=== PATIENT | male | born 1955 | race African-American/Black ===

== ENCOUNTER 2016-12-15 10:31 | Inpatient (IN) | payer OTHER ==
[2016-12-15 12:16] VITALS: BMI 21.1
--- NOTE | 2016-12-15 13:33 | HP ---
COWS - Scale Resting Pulse: 0= [place] 80 or Below Sweatin=Flushed/Facial Moisture Restless Observation: 1= Difficult to Sit Still Pupil Size: 0= Normal to Room Light Bone or Joint Aches: 2= Severe Diffuse Aches Runny Nose/ Eye Tearin= Runny Nose/Eyes GI Upset > 30mins: 1= Stomach Cramp Tremor Observation: 2= Slight Tremor Visible Yawning Observation: 2= >3x During Session Anxiety or Irritability: 2=Irritable/Anxious Goose Flesh Skin: 3=Piloerection COWS Score: 17 Admission ROS S - HPI Chief Complaint: I am sick and need help. Allergies/Adverse Reactions: Allergies Allergy/AdvReac Type Severity Reaction Status Date / Time No Known Allergies Allergy Verified 12/15/16 12:39 History of Present Illness: pt is a61yr old male with a history of heroin dependence seeking detox for treatment. Exam Limitations: No Limitations - Ebola screening Have you traveled outside of the country in the last 21 days: No Have you had contact with anyone from an Ebola affected area: No Have you been sick,other than usual withdrawal symptoms: No Do you have a fever: No - Review of Systems Constitutional: Chills, Diaphoresis, Loss of Appetite, Night Sweats, Changes in sleep EENT: reports: Tearing, Nose Congestion Respiratory: reports: No Symptoms reported Cardiac: reports: No Symptoms Reported GI: reports: Diarrhea, Nausea, Poor Appetite, Poor Fluid Intake : reports: No Symptoms Reported Musculoskeletal: reports: Back Pain, Joint Pain Integumentary: reports: Flushing, Sweating Neuro: reports: Seizure, Tingling, Tremors Endocrine: reports: Excessive Sweating, Flushing, Intolerance to Cold, Intolerance to Heat Hematology: reports: No Symptoms Reported Psychiatric: reports: Judgement Intact, Mood/Affect Appropiate, Orientated x3, Agitated, Anxious Other Systems: Reviewed and Negative Patient History - Patient Medical History Hx Anemia: No Hx Asthma: No Hx Chronic Obstructive Pulmonary Disease (COPD): No Hx Cancer: No Hx Cardiac Disorders: No Hx Hypertension: Yes Hx Hypercholesterolemia: No Hx Pacemaker: No HX Cerebrovascular Accident: No Hx Seizures: No Hx Dementia: No Hx Diabetes: No Hx Gastrointestinal Disorders: No Hx Liver Disease: No Hx Genitourinary Disorders: No Hx Sexually Transmitted Disorders: No Hx Renal Disease (ESRD): No Hx Thyroid Disease: No Hx Human Immunodeficiency Virus (HIV): Yes (atripla HIV diagnosed 15yrs ago) Hx Hepatitis C: No Hx Depression: No Hx Suicide Attempt: No (denies) Hx Bipolar Disorder: No Hx Schizophrenia: No - Patient Surgical History Past Surgical History: No - PPD History Previous Implant?: Yes Documented Results: Negative w/o proof Implanted On Prior [facility] Admission?: No PPD to be Administered?: Yes - Reproductive History Patient is a Female of Child Bearing Age (11 -55 yrs old): No - Smoking Cessation Smoking history: Current every day smoker Have you smoked in the past 12 months: Yes Aproximately how many cigarettes per day: 20 Hx Chewing Tobacco Use: No Initiated information on smoking cessation: Yes 'Breaking Loose' booklet given: 12/15/16 - Substance & Tx. History Hx Alcohol Use: No Hx Substance Use: Yes Substance Use Type: Heroin Hx Substance Use Treatment: Yes - Substances Abused Heroin Route: Inhalation Frequency: Daily Amount used: 7 bags Age of first use: 23 Date of Last Use: 12/14/16 Family Disease History - Family Disease History Family History: Denies Admission Physical Exam BHS - Vital Signs Vital Signs: Vital Signs - 24 hr 12/15/16 12:09 Temperature 97 F L Pulse Rate 84 Respiratory 20 Rate Blood Pressure 125/91 - Physical General Appearance: Yes: Appropriately Dressed, Moderate Distress, Tremorous, Irritable, Sweating, Anxious HEENTM: Yes: Normal Voice, Hearing Decreased, Nasal Congestion, Rhinorrhea Respiratory: Yes: Lungs Clear, Normal Breath Sounds, No Respiratory Distress Neck: Yes: No masses,lesions,Nodules Breast: Yes: Within Normal Limits Cardiology: Yes: Regular Rhythm, Regular Rate, S1, S2, Tachycardia Abdominal: Yes: Normal Bowel Sounds, Non Tender, Soft Genitourinary: Yes: Within Normal Limits Back: Yes: Normal Inspection Musculoskeletal: Yes: Back pain Extremities: Yes: Normal Inspection, Non-Tender, Tremors Neurological: Yes: Fully Oriented, Alert, Normal Response Integumentary: Yes: Normal Color, Diaphoresis Lymphatic: Yes: Within Normal Limits - Diagnostic (1) HIV disease Current Visit: Yes Status: Chronic (2) Hypertension Current Visit: Yes Status: Chronic Qualifiers: Hypertension type: essential hypertension Qualified Code(s): I10 - Essential (primary) hypertension (3) Opioid dependence with withdrawal Current Visit: Yes Status: Chronic Cleared for Admission [facility] - Detox or Rehab [facility] Level of Care: Medically Managed Detox Regimen/Protocol: Methadone [facility] Breath Alcohol Content Breath Alcohol Content: 0 Urine Drug Screen - Results Drug Screen Negative: No Urine Drug Screen Results: OPI-Opiates, OXY-Oxycodone
[2016-12-15] MEDS ORDERED: ACETAMINOPHEN 325 MG TABLET (FP) PO PRN (13:38)
[2016-12-15] MEDS ORDERED: P-EPHED 60MG/TRIPROLIDI 2.5MG TABLET PO PRN (13:38)
[2016-12-15] MEDS ORDERED: MAG HYDROX/AL HYDROX/SIMETH 30 ML UNIT-DOSE CUP PO PRN (13:38)
[2016-12-15] MEDS ORDERED: IBUPROFEN 400 MG TABLET (FP) PO PRN (13:38)
[2016-12-15] MEDS ORDERED: MAGNESIUM HYDROX 2400MG/30ML ORAL SUSPENSION 30 ML CUP PO PRN (13:38)
[2016-12-15] MEDS ORDERED: MENTHOL/PHENOL 1 EACH UD MM PRN (13:38)
[2016-12-15] MEDS ORDERED: MAGNESIUM CITRATE 300 ML BOTTLE PO PRN (13:38)
[2016-12-15] MEDS ORDERED: guaiFENesin/D-METHORPHAN HB 10 ML UNIT-DOSE CUPS PO PRN (13:38)
[2016-12-15] MEDS ORDERED: NICOTINE POLACRILEX 4 MG GUM BUC PRN (13:38)
[2016-12-15] MEDS ORDERED: METHADONE HCL 10 MG TABLET (FOR DETOX USE ONLY) PO ONE ×2 (14:38→23:00)
[2016-12-15] MEDS: diazePAM 5 MG TABLET PO PRN (14:55)
[2016-12-15 18:14] LABS: URINE APPEARANCE CLEAR; URINE BILIRUBIN NEGATIVE (NEGATIVE); URINE BLOOD NEGATIVE (NEGATIVE); URINE COLOR YELLOW; URINE GLUCOSE (UA) NEGATIVE (NEGATIVE); URINE KETONE TRACE (NEGATIVE); URINE LEUK ESTERASE NEGATIVE (NEGATIVE); URINE NITRITE NEGATIVE (NEGATIVE); URINE PROTEIN NEGATIVE (NEGATIVE); URINE UROBILINOGEN NEGATIVE E.U./dl (0.2-1.0)
[2016-12-15] MEDS: THIAMINE HCL 100 MG TABLET (FP) PO SCH (22:29)
[2016-12-15] MEDS: diphenhydrAMINE HCL 50 MG CAPSULE PO PRN (22:29)
[2016-12-15] MEDS: PATIENT'S OWN MEDICATION (NON-FORMULARY) (Efavirenz/Emtricitab/Tenofovir 1 TAB) PO SCH (22:29)
[2016-12-16] MEDS: diazePAM 5 MG TABLET PO PRN ×4 (00:53→22:29)
[2016-12-16] MEDS: CYCLOBENZAPRINE HCL 10 MG TABLET (FP) PO PRN (00:53)
[2016-12-16] MEDS ORDERED: cloNIDine HCL 0.1 MG TABLET PO ONE (01:39)
[2016-12-16] MEDS: diphenhydrAMINE HCL 50 MG CAPSULE PO PRN ×2 (01:44→22:29)
[2016-12-16] MEDS ORDERED: METHADONE HCL 10 MG TABLET (FOR DETOX USE ONLY) PO ONE (10:00)
[2016-12-16 10:19] LABS: MCHC 32.4 g/dl (32.0-35.9); MEAN CELL VOLUME 83.4 fl (80-96); MEAN PLT VOLUME 8.8 fl (7.5-11.1); PLATELET COUNT 262 K/MM3 (134-434); RDW 14.6 % (11.9-15.9); WHITE BLOOD COUNT 4.4 K/mm3 (4.0-10.0)
[2016-12-16] MEDS: amLODIPine BESYLATE 2.5 MG TABLET (FP) PO SCH (10:30)
[2016-12-16] MEDS: NICOTINE 21 MG/24 HOURS TOPICAL PATCH TD SCH (10:30)
[2016-12-16] MEDS: PRENATAL VITAMINS W/ FOLIC ACID TABLET (FP) PO SCH (10:30)
[2016-12-16] MEDS: HYDROCHLOROTHIAZIDE 25 MG TABLET (FP) PO SCH (10:33)
[2016-12-16 10:42] LABS: ALBUMIN 4.5 g/dl (3.4-5.0); ALK PHOS 138 U/L (45-117); ANION GAP 12 (8-16); BILIRUBIN,TOTAL 0.5 mg/dL (0.2-1.0); CALCIUM 9.5 mg/dL (8.5-10.1); CO2 27 mmol/L (21-32); COCKROFT - GAULT 72.3; CREATININE 1.1 mg/dL (0.7-1.3); GLUCOSE,RANDOM 99 mg/dL (74-106); SGOT/AST 15 U/L (15-37); SGPT/ALT 16 U/L (12-78); TOT PROT 7.9 g/dl (6.4-8.2)
--- NOTE | 2016-12-16 12:58 | PN ---
BHS COWS - Scale Resting Pulse: 1= [place] 81-100 Sweatin=Flushed/Facial Moisture Restless Observation: 1= Difficult to Sit Still Pupil Size: 0= Normal to Room Light Bone or Joint Aches: 2= Severe Diffuse Aches Runny Nose/ Eye Tearin= Runny Nose/Eyes GI Upset > 30mins: 2= Nausea/Diarrhea Tremor Observation of Outstretched Hands: 2= Slight Tremor Visible Yawning Observation: 1= 1-2x During Session Anxiety or Irritability: 2=Irritable/Anxious Goose Flesh Skin: 0=Smooth Skin COWS Score: 15 BHS Progress Note (SOAP) Subjective: Anxiety,tremors,sweating,interrupted sleep,restless Objective: 12/16/16 12:57 Vital Signs - 8 hr 12/16/16 12/16/16 06:34 09:17 Temperature 96.5 F L 97.6 F Pulse Rate 90 81 Respiratory 18 18 Rate Blood Pressure 112/90 111/87 Laboratory Tests 12/15/16 12/16/16 12/16/16 14:00 06:00 06:00 WBC 4.4 RBC 4.86 Hgb 13.1 Hct 40.6 MCV 83.4 MCHC 32.4 RDW 14.6 Plt Count 262 MPV 8.8 Sodium 140 Potassium 4.1 Chloride 101 Carbon Dioxide 27 Anion Gap 12 BUN 13 Creatinine 1.1 Creat Clearance w eGFR > 60 Random Glucose 99 Calcium 9.5 Total Bilirubin 0.5 AST 15 ALT 16 Alkaline Phosphatase 138 H Total Protein 7.9 Albumin 4.5 Urine Color Yellow Urine Appearance Clear Urine pH 7.0 Ur Specific [place] 1.021 Urine Protein Negative Urine Glucose (UA) Negative Urine Ketones Trace H Urine Blood Negative Urine Nitrite Negative Urine Bilirubin Negative Urine Urobilinogen Negative Ur Leukocyte Esterase Negative RPR Titer 12/16/16 06:00 WBC RBC Hgb Hct MCV MCHC RDW Plt Count MPV Sodium Potassium Chloride Carbon Dioxide Anion Gap BUN Creatinine Creat Clearance w eGFR Random Glucose Calcium Total Bilirubin AST ALT Alkaline Phosphatase Total Protein Albumin Urine Color Urine Appearance Urine pH Ur Specific [place] Urine Protein Urine Glucose (UA) Urine Ketones Urine Blood Urine Nitrite Urine Bilirubin Urine Urobilinogen Ur Leukocyte Esterase RPR Titer Nonreactive labs noted Assessment: 12/16/16 12:58 withdrawal sx. Plan: Continue detox
--- NOTE | 2016-12-16 13:34 | EKG ---
Test Reason : Blood Pressure : / mmHG Vent. Rate : 075 BPM Atrial Rate : 075 BPM P-R Int : 208 ms QRS Dur : 112 ms QT Int : 386 ms P-R-T Axes : 066 -53 002 degrees QTc Int : 431 ms NORMAL SINUS RHYTHM INCOMPLETE RIGHT BUNDLE BRANCH BLOCK LEFT ANTERIOR FASCICULAR BLOCK MINIMAL VOLTAGE CRITERIA FOR LVH, MAY BE NORMAL VARIANT ANTEROSEPTAL INFARCT (CITED ON OR BEFORE 15-DEC-2016) ABNORMAL ECG WHEN COMPARED WITH ECG OF 15-DEC-2016 14:13, QUESTIONABLE CHANGE IN INITIAL FORCES OF SEPTAL LEADS INVERTED T WAVES HAVE REPLACED NONSPECIFIC T WAVE ABNORMALITY IN INFERIOR LEADS Confirmed by RIGO HSEPPARD MD ([id number]) on 12/16/2016 1:33:56 PM Referred By: Confirmed By:RIGO SHEPPARD MD
--- NOTE | 2016-12-16 13:35 | EKG ---
Test Reason : Blood Pressure : / mmHG Vent. Rate : 084 BPM Atrial Rate : 084 BPM P-R Int : 198 ms QRS Dur : 108 ms QT Int : 368 ms P-R-T Axes : 067 -58 042 degrees QTc Int : 434 ms NORMAL SINUS RHYTHM LEFT ANTERIOR FASCICULAR BLOCK MODERATE VOLTAGE CRITERIA FOR LVH, MAY BE NORMAL VARIANT ANTEROSEPTAL INFARCT , AGE UNDETERMINED ABNORMAL ECG NO PREVIOUS ECGS AVAILABLE Confirmed by SILVER WHELAN, RIGO ([id number]) on 12/16/2016 1:35:37 PM Referred By: Confirmed By:RIGO SHEPPARD MD
[2016-12-16] MEDS: PATIENT'S OWN MEDICATION (NON-FORMULARY) (Efavirenz/Emtricitab/Tenofovir 1 TAB) PO SCH (22:27)
[2016-12-16] MEDS: THIAMINE HCL 100 MG TABLET (FP) PO SCH (22:27)
[2016-12-17] MEDS: CYCLOBENZAPRINE HCL 10 MG TABLET (FP) PO PRN (01:39)
[2016-12-17] MEDS: diphenhydrAMINE HCL 50 MG CAPSULE PO PRN ×2 (01:39→22:06)
[2016-12-17] MEDS: diazePAM 5 MG TABLET PO PRN ×3 (05:17→22:05)
[2016-12-17] MEDS ORDERED: METHADONE HCL 5 MG TABLET (FOR DETOX USE ONLY) PO ONE (10:00)
[2016-12-17] MEDS: PRENATAL VITAMINS W/ FOLIC ACID TABLET (FP) PO SCH (10:31)
[2016-12-17] MEDS: HYDROCHLOROTHIAZIDE 25 MG TABLET (FP) PO SCH (10:31)
[2016-12-17] MEDS: amLODIPine BESYLATE 2.5 MG TABLET (FP) PO SCH (10:32)
[2016-12-17] MEDS: NICOTINE 21 MG/24 HOURS TOPICAL PATCH TD SCH (10:32)
--- NOTE | 2016-12-17 10:41 | PN ---
BHS COWS - Scale Resting Pulse: 2= [place] 101-120 Sweatin= Chills/Flushing Restless Observation: 3= Extraneous Movement Pupil Size: 2= Moderately Dilated Bone or Joint Aches: 4=Acute Joint/Muscle Pain Runny Nose/ Eye Tearin= Nasal Congestion GI Upset > 30mins: 1= Stomach Cramp Tremor Observation of Outstretched Hands: 1= Tremor [place], Not Seen Yawning Observation: 2= >3x During Session Anxiety or Irritability: 2=Irritable/Anxious Goose Flesh Skin: 0=Smooth Skin COWS Score: 19 BHS Progress Note (SOAP) Subjective: ANXIETY,IRRITABILITY,AGITATION,LOWER BACK PAIN. Objective: 12/17/16 10:41 Vital Signs Temperature 97.0 F L 12/17/16 09:18 Pulse Rate 102 H 12/17/16 09:18 Respiratory Rate 20 12/17/16 09:18 Blood Pressure 118/87 12/17/16 09:18 O2 Sat by Pulse Oximetry (%) Laboratory Last Values WBC 4.4 K/mm3 (4.0-10.0) 12/16/16 06:00 RBC 4.86 M/mm3 (4.00-5.60) 12/16/16 06:00 Hgb 13.1 GM/dL (11.7-16.9) 12/16/16 06:00 Hct 40.6 % (35.4-49) 12/16/16 06:00 MCV 83.4 fl (80-96) 12/16/16 06:00 MCHC 32.4 g/dl (32.0-35.9) 12/16/16 06:00 RDW 14.6 % (11.9-15.9) 12/16/16 06:00 Plt Count 262 K/MM3 (134-434) 12/16/16 06:00 MPV 8.8 fl (7.5-11.1) 12/16/16 06:00 Sodium 140 mmol/L (136-145) 12/16/16 06:00 Potassium 4.1 mmol/L (3.5-5.1) 12/16/16 06:00 Chloride 101 mmol/L (98-107) 12/16/16 06:00 Carbon Dioxide 27 mmol/L (21-32) 12/16/16 06:00 Anion Gap 12 (8-16) 12/16/16 06:00 BUN 13 mg/dL (7-18) 12/16/16 06:00 Creatinine 1.1 mg/dL (0.7-1.3) 12/16/16 06:00 Creat Clearance w eGFR > 60 (>60) 12/16/16 06:00 Random Glucose 99 mg/dL (74-106) 12/16/16 06:00 Calcium 9.5 mg/dL (8.5-10.1) 12/16/16 06:00 Total Bilirubin 0.5 mg/dL (0.2-1.0) 12/16/16 06:00 AST 15 U/L (15-37) 12/16/16 06:00 ALT 16 U/L (12-78) 12/16/16 06:00 Alkaline Phosphatase 138 U/L (45-117) H 12/16/16 06:00 Total Protein 7.9 g/dl (6.4-8.2) 12/16/16 06:00 Albumin 4.5 g/dl (3.4-5.0) 12/16/16 06:00 Urine Color Yellow 12/15/16 14:00 Urine Appearance Clear 12/15/16 14:00 Urine pH 7.0 (5.0-8.0) 12/15/16 14:00 Ur Specific [place] 1.021 (1.001-1.035) 12/15/16 14:00 Urine Protein Negative (NEGATIVE) 12/15/16 14:00 Urine Glucose (UA) Negative (NEGATIVE) 12/15/16 14:00 Urine Ketones Trace (NEGATIVE) H 12/15/16 14:00 Urine Blood Negative (NEGATIVE) 12/15/16 14:00 Urine Nitrite Negative (NEGATIVE) 12/15/16 14:00 Urine Bilirubin Negative (NEGATIVE) 12/15/16 14:00 Urine Urobilinogen Negative E.U./dl (0.2-1.0) 12/15/16 14:00 Ur Leukocyte Esterase Negative (NEGATIVE) 12/15/16 14:00 RPR Titer Nonreactive (NONREACTIVE) 12/16/16 06:00 Assessment: 12/17/16 10:41 WITHDRAWAL SX Plan: CONTINUE DETOX
[2016-12-17] MEDS ORDERED: cloNIDine HCL 0.1 MG TABLET PO SCH (10:45)
--- NOTE | 2016-12-17 11:32 | CONSULT ---
[facility] Psychiatric Consult - Data Date of interview: 12/17/16 Admission source: [facility] Identifying data: First admission to [facility] for this 61 y/o AA male seeking detox treatment,on ,for heroin dependence.Patient is ,a father of three,homeless,unemployed and supported on food stamps. Substance Abuse History: - Smoking Cessation. Smoking history: Current every day smoker. Have you smoked in the past 12 months: Yes. Aproximately how many cigarettes per day: 20. Hx Chewing Tobacco Use: No. Initiated information on smoking cessation: Yes. 'Breaking Loose' booklet given: 12/15/16. - Substance & Tx. History. Hx Alcohol Use: No. Hx Substance Use: Yes. Substance Use Type : Heroin. Hx Substance Use Treatment: Yes. - Substances Abused. Heroin. Route: Inhalation. Frequency: Daily. Amount used: 7 bags. Age of first use: 23. Date of Last Use: 12/14/16. Confirmed by patient. Medical History: HIV infection and hypertension. Psychiatric History: Patient denies. Physical/Sexual Abuse/Trauma History: No history. Additional Comment: Urine Drug Screen Results: OPI-Opiates, OXY-Oxycodone.Noted. Mental Status Exam - Mental Status Exam Alert and Oriented to: Time, Place, Person Cognitive Function: Good Patient Appearance: Well Groomed Mood: Withdrawn, Anxious Affect: Mood Congruent Patient Behavior: Fatigued, Appropriate, Cooperative Speech Pattern: Clear, Appropriate Voice Loudness: Normal Thought Process: Goal Oriented Thought Disorder: Not Present Hallucinations: Denies Suicidal Ideation: Denies Homicidal Ideation: Denies Insight/Judgement: Poor Sleep: Poorly, Difficulty falling asleep (requests trazodone) Appetite: Good Muscle strength/Tone: Normal Gait/Station: Normal Psychiatric Findings - Problem List ([place] 1, 2,3) (1) Opioid dependence with withdrawal Current Visit: Yes Status: Acute (2) Nicotine dependence Current Visit: Yes Status: Acute (3) HIV disease Current Visit: Yes Status: Chronic (4) Hypertension Current Visit: Yes Status: Chronic Qualifiers: Hypertension type: essential hypertension Qualified Code(s): I10 - Essential (primary) hypertension (5) Insomnia Current Visit: Yes Status: Acute - Initial Treatment Plan Initial Treatment Plan: Psychoeducation.Detoxification.Trazodone (patient's request) 50 mg po hs.Made aware of potential for priapism.Patient reports prior history of effectiveness/good tolerability to trazodone.Observation.
[2016-12-17] MEDS: CYCLOBENZAPRINE HCL 10 MG TABLET (FP) PO SCH ×2 (14:30→22:05)
[2016-12-17] MEDS: THIAMINE HCL 100 MG TABLET (FP) PO SCH (22:05)
[2016-12-17] MEDS: PATIENT'S OWN MEDICATION (NON-FORMULARY) (Efavirenz/Emtricitab/Tenofovir 1 TAB) PO SCH (22:06)
[2016-12-18] MEDS: hydrOXYzine PAMOATE 50 MG CAPSULE (FP) PO PRN (00:47)
[2016-12-18] MEDS: CYCLOBENZAPRINE HCL 10 MG TABLET (FP) PO SCH ×3 (05:22→22:22)
[2016-12-18] MEDS: diazePAM 5 MG TABLET PO PRN ×2 (05:24→10:22)
[2016-12-18] MEDS ORDERED: METHADONE HCL 5 MG TABLET (FOR DETOX USE ONLY) PO ONE (10:00)
[2016-12-18] MEDS: PRENATAL VITAMINS W/ FOLIC ACID TABLET (FP) PO SCH (10:22)
[2016-12-18] MEDS: HYDROCHLOROTHIAZIDE 25 MG TABLET (FP) PO SCH (10:22)
[2016-12-18] MEDS: amLODIPine BESYLATE 2.5 MG TABLET (FP) PO SCH (10:23)
[2016-12-18] MEDS: LOPERAMIDE HCL 2 MG CAPSULE PO PRN (10:23)
[2016-12-18] MEDS: NICOTINE 21 MG/24 HOURS TOPICAL PATCH TD SCH (10:23)
--- NOTE | 2016-12-18 13:54 | PN ---
BHS Progress Note (SOAP) Subjective: Interrupted Sleep, Body aches, Stomach Ache, Diarrhea, Sweating. Objective: PT. A & O X 2 (DISORIENTED ABOUT DAY / DATE). 12/18/16 13:52 Vital Signs Temperature 96.0 F L 12/18/16 13:36 Pulse Rate 114 H 12/18/16 13:36 Respiratory Rate 18 12/18/16 13:36 Blood Pressure 113/86 12/18/16 13:36 O2 Sat by Pulse Oximetry (%) Laboratory Last Values WBC 4.4 K/mm3 (4.0-10.0) 12/16/16 06:00 RBC 4.86 M/mm3 (4.00-5.60) 12/16/16 06:00 Hgb 13.1 GM/dL (11.7-16.9) 12/16/16 06:00 Hct 40.6 % (35.4-49) 12/16/16 06:00 MCV 83.4 fl (80-96) 12/16/16 06:00 MCHC 32.4 g/dl (32.0-35.9) 12/16/16 06:00 RDW 14.6 % (11.9-15.9) 12/16/16 06:00 Plt Count 262 K/MM3 (134-434) 12/16/16 06:00 MPV 8.8 fl (7.5-11.1) 12/16/16 06:00 Sodium 140 mmol/L (136-145) 12/16/16 06:00 Potassium 4.1 mmol/L (3.5-5.1) 12/16/16 06:00 Chloride 101 mmol/L (98-107) 12/16/16 06:00 Carbon Dioxide 27 mmol/L (21-32) 12/16/16 06:00 Anion Gap 12 (8-16) 12/16/16 06:00 BUN 13 mg/dL (7-18) 12/16/16 06:00 Creatinine 1.1 mg/dL (0.7-1.3) 12/16/16 06:00 Creat Clearance w eGFR > 60 (>60) 12/16/16 06:00 Random Glucose 99 mg/dL (74-106) 12/16/16 06:00 Calcium 9.5 mg/dL (8.5-10.1) 12/16/16 06:00 Total Bilirubin 0.5 mg/dL (0.2-1.0) 12/16/16 06:00 AST 15 U/L (15-37) 12/16/16 06:00 ALT 16 U/L (12-78) 12/16/16 06:00 Alkaline Phosphatase 138 U/L (45-117) H 12/16/16 06:00 Total Protein 7.9 g/dl (6.4-8.2) 12/16/16 06:00 Albumin 4.5 g/dl (3.4-5.0) 12/16/16 06:00 Urine Color Yellow 12/15/16 14:00 Urine Appearance Clear 12/15/16 14:00 Urine pH 7.0 (5.0-8.0) 12/15/16 14:00 Ur Specific [place] 1.021 (1.001-1.035) 12/15/16 14:00 Urine Protein Negative (NEGATIVE) 12/15/16 14:00 Urine Glucose (UA) Negative (NEGATIVE) 12/15/16 14:00 Urine Ketones Trace (NEGATIVE) H 12/15/16 14:00 Urine Blood Negative (NEGATIVE) 12/15/16 14:00 Urine Nitrite Negative (NEGATIVE) 12/15/16 14:00 Urine Bilirubin Negative (NEGATIVE) 12/15/16 14:00 Urine Urobilinogen Negative E.U./dl (0.2-1.0) 12/15/16 14:00 Ur Leukocyte Esterase Negative (NEGATIVE) 12/15/16 14:00 RPR Titer Nonreactive (NONREACTIVE) 12/16/16 06:00 LABS NOTED. Assessment: 12/18/16 13:53 WITHDRAWAL SYMPTOMS. Plan: CONTINUE DETOX. ADVISED PATIENT TO FOLLOW-UP WITH [facility] / REHAB MEDICAL PROVIDER AFTER DISCHARGE FROM DETOX FOR GENERAL MEDICAL ASSESSMENT AND FOR ABNORMAL ADMISSION LAB VALUES.
[2016-12-18] MEDS: THIAMINE HCL 100 MG TABLET (FP) PO SCH (22:21)
[2016-12-18] MEDS: diphenhydrAMINE HCL 50 MG CAPSULE PO PRN (22:21)
[2016-12-18] MEDS: PATIENT'S OWN MEDICATION (NON-FORMULARY) (Efavirenz/Emtricitab/Tenofovir 1 TAB) PO SCH (22:22)
[2016-12-19] MEDS: CYCLOBENZAPRINE HCL 10 MG TABLET (FP) PO SCH ×3 (05:43→22:37)
[2016-12-19] MEDS: LOPERAMIDE HCL 2 MG CAPSULE PO PRN ×2 (08:32→17:32)
[2016-12-19] MEDS ORDERED: METHADONE HCL 10 MG TABLET (FOR DETOX USE ONLY) PO ONE (10:00)
[2016-12-19] MEDS: amLODIPine BESYLATE 2.5 MG TABLET (FP) PO SCH (10:19)
[2016-12-19] MEDS: PRENATAL VITAMINS W/ FOLIC ACID TABLET (FP) PO SCH (10:19)
[2016-12-19] MEDS: NICOTINE 21 MG/24 HOURS TOPICAL PATCH TD SCH (10:19)
[2016-12-19] MEDS: HYDROCHLOROTHIAZIDE 25 MG TABLET (FP) PO SCH (10:19)
--- NOTE | 2016-12-19 13:10 | PN ---
S Progress Note (SOAP) Subjective: Interrupted sleep, anxious, sweating, diarrhea Objective: 12/19/16 13:08 Last Vital Signs Temp Pulse Resp BP Pulse Ox 97.0 F L 100 H 20 110/87 12/19/16 09:48 12/19/16 09:48 12/19/16 09:48 12/19/16 09:48 Laboratory Tests 12/15/16 12/16/16 12/16/16 14:00 06:00 06:00 WBC 4.4 RBC 4.86 Hgb 13.1 Hct 40.6 MCV 83.4 MCHC 32.4 RDW 14.6 Plt Count 262 MPV 8.8 Sodium 140 Potassium 4.1 Chloride 101 Carbon Dioxide 27 Anion Gap 12 BUN 13 Creatinine 1.1 Creat Clearance w eGFR > 60 Random Glucose 99 Calcium 9.5 Total Bilirubin 0.5 AST 15 ALT 16 Alkaline Phosphatase 138 H Total Protein 7.9 Albumin 4.5 Urine Color Yellow Urine Appearance Clear Urine pH 7.0 Ur Specific [place] 1.021 Urine Protein Negative Urine Glucose (UA) Negative Urine Ketones Trace H Urine Blood Negative Urine Nitrite Negative Urine Bilirubin Negative Urine Urobilinogen Negative Ur Leukocyte Esterase Negative RPR Titer 12/16/16 06:00 WBC RBC Hgb Hct MCV MCHC RDW Plt Count MPV Sodium Potassium Chloride Carbon Dioxide Anion Gap BUN Creatinine Creat Clearance w eGFR Random Glucose Calcium Total Bilirubin AST ALT Alkaline Phosphatase Total Protein Albumin Urine Color Urine Appearance Urine pH Ur Specific [place] Urine Protein Urine Glucose (UA) Urine Ketones Urine Blood Urine Nitrite Urine Bilirubin Urine Urobilinogen Ur Leukocyte Esterase RPR Titer Nonreactive Labs noted Assessment: 12/19/16 13:09 Withdrawal symptoms Plan: Continue detox Encouraged to drink lots of water (ordered for water pitcher), ambien 10mg PO x 1 dose tonight for interrupted sleep)
[2016-12-19] MEDS: hydrOXYzine PAMOATE 50 MG CAPSULE (FP) PO PRN (18:15)
[2016-12-19] MEDS ORDERED: ZOLPIDEM TARTRATE 5 MG TABLET PO ONE (22:00)
[2016-12-19] MEDS: THIAMINE HCL 100 MG TABLET (FP) PO SCH (22:37)
[2016-12-19] MEDS: PATIENT'S OWN MEDICATION (NON-FORMULARY) (Efavirenz/Emtricitab/Tenofovir 1 TAB) PO SCH (22:37)
[2016-12-20] MEDS: hydrOXYzine PAMOATE 50 MG CAPSULE (FP) PO PRN (05:47)
[2016-12-20] MEDS: CYCLOBENZAPRINE HCL 10 MG TABLET (FP) PO SCH (05:47)
[2016-12-20] MEDS ORDERED: METHADONE HCL 5 MG TABLET (FOR DETOX USE ONLY) PO ONE (06:00)
[2016-12-20 06:41] VITALS: BP 103/78; PULSE 114; TEMP 98
--- NOTE | 2016-12-20 08:38 | DS ---
[facility] Detox Discharge Summary Admission Date: 12/15/16 Discharge Date: 12/20/16 - History Present History: Opioid Dependence Pertinent Past History: HIV disease HTN - Physical Exam Results Vital Signs: Vital Signs Temperature 98.0 F 12/20/16 06:41 Pulse Rate 114 H 12/20/16 06:41 Respiratory Rate 18 12/20/16 06:41 Blood Pressure 103/78 12/20/16 06:41 O2 Sat by Pulse Oximetry (%) Pertinent Admission Physical Exam Findings: Withdrawal sx. Laboratory Last Values WBC 4.4 K/mm3 (4.0-10.0) 12/16/16 06:00 RBC 4.86 M/mm3 (4.00-5.60) 12/16/16 06:00 Hgb 13.1 GM/dL (11.7-16.9) 12/16/16 06:00 Hct 40.6 % (35.4-49) 12/16/16 06:00 MCV 83.4 fl (80-96) 12/16/16 06:00 MCHC 32.4 g/dl (32.0-35.9) 12/16/16 06:00 RDW 14.6 % (11.9-15.9) 12/16/16 06:00 Plt Count 262 K/MM3 (134-434) 12/16/16 06:00 MPV 8.8 fl (7.5-11.1) 12/16/16 06:00 Sodium 140 mmol/L (136-145) 12/16/16 06:00 Potassium 4.1 mmol/L (3.5-5.1) 12/16/16 06:00 Chloride 101 mmol/L (98-107) 12/16/16 06:00 Carbon Dioxide 27 mmol/L (21-32) 12/16/16 06:00 Anion Gap 12 (8-16) 12/16/16 06:00 BUN 13 mg/dL (7-18) 12/16/16 06:00 Creatinine 1.1 mg/dL (0.7-1.3) 12/16/16 06:00 Creat Clearance w eGFR > 60 (>60) 12/16/16 06:00 Random Glucose 99 mg/dL (74-106) 12/16/16 06:00 Calcium 9.5 mg/dL (8.5-10.1) 12/16/16 06:00 Total Bilirubin 0.5 mg/dL (0.2-1.0) 12/16/16 06:00 AST 15 U/L (15-37) 12/16/16 06:00 ALT 16 U/L (12-78) 12/16/16 06:00 Alkaline Phosphatase 138 U/L (45-117) H 12/16/16 06:00 Total Protein 7.9 g/dl (6.4-8.2) 12/16/16 06:00 Albumin 4.5 g/dl (3.4-5.0) 12/16/16 06:00 Urine Color Yellow 12/15/16 14:00 Urine Appearance Clear 12/15/16 14:00 Urine pH 7.0 (5.0-8.0) 12/15/16 14:00 Ur Specific [place] 1.021 (1.001-1.035) 12/15/16 14:00 Urine Protein Negative (NEGATIVE) 12/15/16 14:00 Urine Glucose (UA) Negative (NEGATIVE) 12/15/16 14:00 Urine Ketones Trace (NEGATIVE) H 12/15/16 14:00 Urine Blood Negative (NEGATIVE) 12/15/16 14:00 Urine Nitrite Negative (NEGATIVE) 12/15/16 14:00 Urine Bilirubin Negative (NEGATIVE) 12/15/16 14:00 Urine Urobilinogen Negative E.U./dl (0.2-1.0) 12/15/16 14:00 Ur Leukocyte Esterase Negative (NEGATIVE) 12/15/16 14:00 RPR Titer Nonreactive (NONREACTIVE) 12/16/16 06:00 labs noted - Treatment Hospital Course: Detox Protocol Followed, Detoxed Safely, Responded well, Discharged Condition Good, Rehab Referral Accepted Patient has Accepted a Rehab Referral to: [facility]. - Medication Discharge Medications: Ambulatory Orders Amlodipine Besylate [Norvasc -] 2.5 mg PO DAILY 12/15/16 Efavirenz/Emtricitab/Tenofovir [Atripla -] 1 tab PO HS 12/15/16 Hydrochlorothiazide 25 mg PO DAILY 12/15/16 - Diagnosis (1) Insomnia Current Visit: Yes Status: Acute (2) Nicotine dependence Current Visit: Yes Status: Acute Qualifiers: Nicotine product type: cigarettes Substance use status: uncomplicated Qualified Code(s): F17.210 - Nicotine dependence, cigarettes, uncomplicated (3) Opioid dependence with withdrawal Current Visit: Yes Status: Acute (4) HIV disease Current Visit: Yes Status: Chronic (5) Hypertension Current Visit: Yes Status: Chronic Qualifiers: Hypertension type: essential hypertension Qualified Code(s): I10 - Essential (primary) hypertension - AMA Did Patient Leave Against Medical Advice: No
[2016-12-20] MEDS: LOPERAMIDE HCL 2 MG CAPSULE PO PRN (08:41)
== END 2016-12-20 09:50 | disposition home or self-care (01) | DRG 773 ==
LOC: YASAS 10:31 → Y3N 14:19
PROVIDERS: ADMIT Internal Medicine; ATTEND Internal Medicine
PROC: HZ2ZZZZ Detoxification Services for Substance Abuse Treatment (ICD-10-PCS; principal; 2016-12-20)
DX: F11.23 Opioid dependence with withdrawal (principal); F17.210 Nicotine dependence, cigarettes, uncomplicated; I10 Essential (primary) hypertension; G47.00 Insomnia, unspecified; Z21 Asymptomatic human immunodeficiency virus [HIV] infection status
CPT/HCPCS: 36415; 80053; 81003; 85027; 86593; 93005; 93010